=== PATIENT | male | born 1965 | race Caucasian/White ===

== ENCOUNTER → 2017-01-12 | Outpatient (REF) ==
[~2017-01-12] MED LIST: ALDA50TA2 PO; ASPI1TAB PO; CORE6.25 PO; IPRASOL4 NEB; K-TA10TA2 PO; LASI40TA PO; LEVA1TAB2 PO; LIPI20TA PO; MAGN400T5 PO; NICO14DI3 TD; NITR4TASL SL; PRED20TAB PO; PRIN10TA PO
--- NOTE | 2017-01-12 15:23 | REP ---
AP/LATERAL SKULL: HISTORY: Autopsy. The examination is very limited secondary to technique. There is no definite fracture or bone lesion. IMPRESSION: Limited examination demonstrating no definite fracture or bone lesion. Signed by Hilton Saul MD 01/12/2017 03:24 P
== END ==
LOC: M LAB 12:49
DX: Z02.89 Encounter for other administrative examinations (principal)